=== PATIENT | female | born 1985 | race Two or more races ===

== ENCOUNTER 2023-04-05 02:19 | Emergency (ER) | payer MEDICAID ==
[~2023-04-05] VITALS: Ht 147.3 cm; Wt 63.5 kg
[2023-04-05 02:27] VITALS: BP 130/72; TEMP 98.2
[2023-04-05] MEDS ORDERED: GUAIFENESIN/D-METHORPHAN HB 5 ML UDC PO ONE (02:30)
[2023-04-05] MEDS ORDERED: GUAIFENESIN/D-METHORPHAN HB 5 ML UDC ONE (02:43)
[2023-04-05 02:50] VITALS: O2SAT 98
== END 2023-04-05 02:51 | disposition left against medical advice (07) ==
LOC: ER 02:24
DX: R06.02 Shortness of breath (principal); R05.9 Cough, unspecified

== ENCOUNTER 2023-05-24 10:29 | Emergency (ER) | payer MEDICAID ==
[~2023-05-24] VITALS: Ht 149.9 cm; Wt 63.5 kg
[2023-05-24] MEDS ORDERED: ONDANSETRON HCL/PF 4 MG/2 ML VIAL IVP ONE (11:00)
[2023-05-24] MEDS ORDERED: FAMOTIDINE/PF INJ 20 MG/2 ML VIAL IV ONE ×2 (11:00→11:05)
[2023-05-24] MEDS ORDERED: IV NS 0.9% 1,000 ML BAG IV ONE (11:00)
[2023-05-24] MEDS ORDERED: MORPHINE SULFATE INJ 2 MG/ML DISP.SYRIN IV ONE (11:00)
[2023-05-24] MEDS ORDERED: MORPHINE SULFATE INJ 2 MG/ML DISP.SYRIN ONE (11:05)
[2023-05-24] MEDS ORDERED: ONDANSETRON HCL/PF 4 MG/2 ML VIAL ONE ×2 (11:05→15:55)
[2023-05-24 11:25] LABS: BASOPHILS % (AUTO) 0.3 % (0.0-2.0); EOSINOPHILS # (AUTO) 0.3 K/uL (0.0-0.7); EOSINOPHILS % (AUTO) 2.6 % (0.0-6.0); HEMATOCRIT 37 % (33-45); HEMOGLOBIN 11.9 g/dL (11.5-14.8); LYMPHOCYTES # (AUTO) 2.1 K/uL (0.8-4.8); LYMPHOCYTES % (AUTO) 17.1 % (20.0-44.0); MEAN CORPUSCULAR HEMOGLOBIN 25 PG (26.0-33.0); MEAN CORPUSCULAR HGB CONC 32 g/dl (31.0-36.0); MEAN CORPUSCULAR VOLUME 79 fL (82-100); MONOCYTES # (AUTO) 0.6 K/uL (0.1-1.30); MONOCYTES % (AUTO) 5.1 % (2.0-12.0); NEUTROPHILS # (AUTO) 9.2 K/uL (1.8-8.9); NEUTROPHILS % (AUTO) 74.9 % (43.0-81.0); PLATELET COUNT (AUTO) 229 K/uL (150-450); RED BLOOD CELL COUNT(AUTO) 4.68 MIL/uL (4.0-5.2); RED CELL DISTRIBUTION WIDTH 14.1 % (11.5-15.0); WHITE BLOOD COUNT (AUTO) 12.3 K/uL (4.3-11.0)
[2023-05-24 11:26] LABS: ALBUMIN 3.4 g/dL (3.4-5.0); BILIRUBIN,DIRECT 0.1 mg/dL (0.0-0.2); BILIRUBIN,TOTAL 0.2 mg/dL (0.2-1.0); CALCIUM, SERUM 8.7 mg/dL (8.5-10.1); CREATININE 0.8 mg/dL (0.6-1.3); POTASSIUM 3.9 mmol/L (3.5-5.1); TOTAL PROTEIN, SERUM 6.8 g/dL (6.4-8.2)
[2023-05-24 11:59] LABS: APPEARANCE,URINE CLEAR (CLEAR); BILIRUBIN,URINE NEGATIVE (NEGATIVE); BLOOD, URINE NEGATIVE Ery/uL (NEGATIVE); COLOR,URINE YELLOW (YELLOW); KETONES,URINE NEGATIVE (NEGATIVE); LEUKOCYTE ESTERASE ,URINE NEGATIVE (NEGATIVE); NITRITE, URINE NEGATIVE (NEGATIVE); PROTEIN,URINE NEGATIVE (NEGATIVE); UGLUCOSE NEGATIVE (NEGATIVE); UROBILINOGEN,URINE 0.2 EU/dL (0.2)
[2023-05-24 12:30] LABS: PREGNANCY TEST URINE QUAL NEGATIVE (NEGATIVE)
[2023-05-24] MEDS ORDERED: KETOROLAC TROMETHAMINE INJ 30 MG/ML VIAL ONE (15:55)
[2023-05-24] MEDS ORDERED: KETOROLAC TROMETHAMINE INJ 30 MG/ML VIAL IV ONE (16:00)
[2023-05-24] MEDS ORDERED: ONDANSETRON HCL/PF - ER 4 MG/2 ML VIAL IV ONE (16:00)
[2023-05-24] MEDS ORDERED: HYDR-4209 PO (17:07)
[2023-05-24] MEDS ORDERED: KETO10TA2 PO (17:07)
[2023-05-24] MEDS ORDERED: ONDA4TAB11 PO (17:07)
[2023-05-24 17:21] VITALS: BP 113/72; TEMP 97.8; O2SAT 99
== END 2023-05-24 17:21 | disposition home or self-care (01) ==
LOC: ER 11:57
DX: R10.84 Generalized abdominal pain (principal); R10.2 Pelvic and perineal pain; Z60.2 Problems related to living alone
CPT/HCPCS: 99285; 74176; 96374; 96375; 76856; 96361; 96376; 85025; 80048; 87086; 83690; 80076; 84703; 81003; 36415; 84702; J3490; J1885; J2405 ×2; J7030; J2270